=== PATIENT | female | born 1970 | race Caucasian/White ===

== ENCOUNTER 2017-01-11 11:07 | Emergency (ER) | payer BC ==
--- NOTE | 2017-01-13 13:13 | ER ---
ADMIT: 01/11/2017 RM/LOC: ER [facility] MR#: [id number] [facility] [address] [place], [place] [id number] ESTUARDO ROCHE JENS [address] [place] [id number] Emergency Room Report SEX: F AGE: 47 : 1970 DATE: 01/11/2017 HISTORY OF PRESENT ILLNESS: The patient is a 47-year-old female with past medical history of hemorrhagic CVA and cerebral aneurysm and anxiety and depression, came to the ER with chief complaint of dizziness and mild headache and feeling the head is heavy. The patient states that the symptoms were intermittent and were mild and started today. The patient denies any hearing loss and problem with the balance or new numbness or weakness. The patient denies any vertigo or hearing changes too. The patient denies any visual changes. PHYSICAL EXAMINATION: GENERAL: The patient is anxious and is in mild distress. VITAL SIGNS: Stable. HEAD AND NECK: Pupils are 3 mm, reactive to light. Normal extraocular movements. Trachea is midline. There is no bruit on the neck. HEART: Normal heart sounds. LUNGS: Clear bilaterally. ABDOMEN: Soft. NEUROLOGIC: Grossly normal. After the examination, the patient states she developed some epigastric pain, the patient was re-examined, and there were no abdominal tenderness or rebound. There is no guarding, and there is no CVA tenderness. CT scan of the brain was negative for any acute new changes or bleeding. Pain was controlled. Lab works were noncontributory with lipase of 130 and AST of 18 and ALT of 24. White BC was 9.7, and hemoglobin was 14.0. Chest x-ray was negative and noncontributory. The patient received GI cocktail and IV fluids. The patient also added that she developed some headaches, which is frontal. It is similar to her previous headache she had, the patient had no meningismus. Headache was controlled. The patient was re-examined and had no focal neurological deficit and no pain or distress. The patient was discharged home with diagnosis of acute on chronic cephalgia resolved, dizziness and abdominal pain resolved to be followed up by the primary doctor as needed. Darek Cummings MD/ maite JOB #: [id number] CC: Darek Cummings MD, Attending Physician Saurabh Christine MD, Family Physician
== END 2017-01-11 15:15 | disposition home or self-care (01) ==
LOC: ER 11:07
DX: R42 Dizziness and giddiness (principal); R51 Headache; R10.13 Epigastric pain; E03.9 Hypothyroidism, unspecified; F17.210 Nicotine dependence, cigarettes, uncomplicated; F32.9 Major depressive disorder, single episode, unspecified; F41.9 Anxiety disorder, unspecified; Z86.73 Personal history of transient ischemic attack (TIA), and cerebral infarction without residual deficits; Z79.899 Other long term (current) drug therapy